=== PATIENT | female | born 1940 | race Caucasian/White ===

== ENCOUNTER 2020-03-07 09:54 | Day surgery (SDC) | payer MEDICARE ==
[2020-03-05 12:25] VITALS: BMI 21.4
[2020-03-07] MEDS ORDERED: Ondansetron PF 4 MG/2 ML Vial ONE (10:39)
[2020-03-07] MEDS ORDERED: Succinylcholine Chloride 20 MG/ML 10 ml SYRINGE FS ONE (10:39)
[2020-03-07] MEDS ORDERED: Lidocaine 1% PF 5 ML VIAL ONE (10:39)
[2020-03-07] MEDS ORDERED: EPHEDRINE 25 MG/5 ML SYRINGE ONE (10:39)
[2020-03-07] MEDS ORDERED: Dexamethasone 20 MG/5 ML VIAL ONE (10:39)
[2020-03-07] MEDS ORDERED: PROPOFOL 200 MG/20 ML VIAL ONE (10:39)
[2020-03-07 10:54] LABS: Hemoglobin 15.6 g/dL (12.0-16.0)
[2020-03-07] MEDS ORDERED: Lidocaine 1% w/Epinephrine 1:100K 20 ML VIAL ONE (11:41)
[2020-03-07 11:50] LABS: Anion Gap 13 mmol/L (10-20); BUN (Urea Nitrogen) 17 mg/dL (9.8-20.1); Calc. Creatinine Clearance 51 mL/min (70-130); Calcium 9.3 mg/dL (7.8-10.44); Carbon Dioxide 21 mmol/L (23-31); Chloride 110 mmol/L (98-107); Estimated GFR-MDRD 61; Glucose 97 mg/dL (83-110); Potassium 4.1 mmol/L (3.5-5.1); Sodium 140 mmol/L (136-145)
[2020-03-07] MEDS ORDERED: Fentanyl 100 MCG/2 ML VIAL ONE (11:55)
[2020-03-07] MEDS ORDERED: HYDROcodone/Acetaminophen 5/325 mg Tablet ONE (15:27)
--- NOTE | 2020-03-07 18:12 | EKG ---
Test Reason : PREOP Blood Pressure : / mmHG Vent. Rate : 057 BPM Atrial Rate : 057 BPM P-R Int : 150 ms QRS Dur : 082 ms QT Int : 444 ms P-R-T Axes : 033 044 035 degrees QTc Int : 432 ms Sinus bradycardia Nonspecific ST abnormality No previous ECGs available Confirmed by DR. Nava YOON ([id number]) on 03/07/2020 6:11:30 PM Referred By: HALIE Confirmed By:DR. Nava YOON
--- NOTE | 2020-03-08 14:39 | OP ---
DATE OF PROCEDURE: 03/07/2020 PREOPERATIVE DIAGNOSIS: Right thyroid mass. 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 PROCEDURE PERFORMED: Right thyroid lobectomy. DESCRIPTION OF PROCEDURE: After consent was obtained, the patient was identified, brought to the operating room, and placed on the operative table in supine position. General endotracheal anesthesia was obtained, and the patient was positioned for thyroid surgery. The neck was extended and prepped and draped, and the natural skin crease in the lower neck was infiltrated with 1% lidocaine with 1:100,000 epinephrine. We made an incision approximately 5 cm through the skin, subcutaneous tissues, and platysma and raised subplatysmal flaps with electrocautery. Self-retaining retractor was placed, and the strap muscles were divided. We then turned our attention to the right thyroid lobe, where the capsule was from the strap muscles. The strap muscles were then retracted laterally and the thyroid was finger dissected and delivered into the wound, where the inferior, middle, and superior vessels were clearly obvious. We then suture ligated these vessels with care not to injure the blood supply to the parathyroid gland or injure recurrent laryngeal nerve. Once these vessels were addressed, we then further able to rotate the thyroid anteriorly and dissect along the recurrent laryngeal nerve to its insertion of the cricothyroid muscle. The thyroid ligament was then transected and the specimen was reflected along the pretracheal plane into the middle part of the isthmus. This was then transected and suture ligated and the specimen was sent for frozen histologic evaluation, which was returned to be benign. We then obtained hemostasis, placed Fibrillar Surgicel in the deep aspect of the wound, and closed the wound in layers with the strap muscles being reapproximated as well as the platysma with absorbable suture and the skin closed with a running 6-0 Prolene followed by sterile dressing. No drain was placed. The patient was awakened, extubated, and taken to recovery room, where she had a strong voice and remained in stable condition prior to discharge home. Job ID: [id number]
== END 2020-03-07 16:45 | disposition home or self-care (01) ==
LOC: SDC 09:54
PROVIDERS: ATTEND Specialist
PROC: 0GTH0ZZ Resection of Right Thyroid Gland Lobe, Open Approach (ICD-10-PCS; principal; 2020-03-07)
DX: E04.9 Nontoxic goiter, unspecified (principal); E03.9 Hypothyroidism, unspecified; I10 Essential (primary) hypertension; Z79.899 Other long term (current) drug therapy
CPT/HCPCS: 36415; 80048; 85014; 85018; 88307; 93005; 93010; J1100; J2405; J2704; J3010